=== PATIENT | female | born 1935 | race Caucasian/White ===

== ENCOUNTER → 2016-07-29 | Outpatient (CLI) | payer OTHER | LOC: FIMAGING 11:53 | DX: Z12.31 Encounter for screening mammogram for malignant neoplasm of breast (principal); Z80.3 Family history of malignant neoplasm of breast | CPT/HCPCS: G0202 ==

== ENCOUNTER → 2016-12-30 | Outpatient (CLI) | payer OTHER | LOC: FLAB 13:09 | PROVIDERS: ATTEND Physician Assistant Medical | DX: R10.2 Pelvic and perineal pain (principal); R35.0 Frequency of micturition; M54.9 Dorsalgia, unspecified ==

== ENCOUNTER 2017-02-08 21:10 | Inpatient (IN) | payer OTHER ==
[2017-02-08] MEDS ORDERED: NS 500 ML IV ONE ×2 (21:25→22:55)
--- NOTE | 2017-02-08 21:27 | EDPHY ---
H & P Stated Complaint: chest pain jaw pain and syncope Time Seen by Provider: 02/08/17 21:14 HPI/ROS: CHIEF COMPLAINT: Jaw pain, chest pain, lightheaded HISTORY OF PRESENT ILLNESS: 81-year-old female who states she was in her usual state of good health today. After having dinner while standing she had an abrupt onset of feeling very dizzy, like she might pass out, and felt like her heart was pounding. She then developed right-sided jaw pain as well as some very mild anterior chest discomfort. She had a near syncopal episode but was able to lower herself to the floor. Symptoms were persistent so the patient took 1 of her 's nitroglycerin tablets as well as aspirin. Onset occurred approximately 2 hours ago. Patient also reports that both of her hands turned very blue and they were cold. Jaw pain/pounding heart/blue hands lasted 15-20 minutes On arrival to the emergency department the patient reports she has no jaw pain or anterior chest pain although she does report some ongoing lightheadedness. Patient reports being otherwise well. No recent fevers or chills, no shortness of breath, cough, URI symptoms. She does complain of some nausea but had no vomiting or diarrhea. No diaphoresis. No urinary complaints. No prior cardiac history. No history of hypertension, hypercholesterolemia, diabetes, or family history for coronary artery disease. REVIEW OF SYSTEMS: Aside from elements discussed in the HPI, a comprehensive 10-point review of systems was reviewed and is negative. PAST MEDICAL HISTORY: Hypothyroidism, osteoporosis. SOCIAL HISTORY: Nonsmoker. No alcohol use today. VITAL SIGNS Reviewed by me. GENERAL: Well-developed, well-nourished, reports feeling slightly lightheaded. Denies pain currently. HEENT: Atraumatic. Eyes: No icterus, no injection. Mouth: moist mucous membranes. No erythema or lesions. Neck: supple with no adenopathy. No JVD. LUNGS: Clear to auscultation bilaterally, no wheezes, rhonchi or rales. CARDIAC: Occasional premature beat. Split S1. No murmur. No rubs or gallops. Peripheral pulses intact throughout. ABDOMEN: Soft, nontender, nondistended, bowel sounds normal. BACK: No CVA tenderness. EXTREMITIES: No trauma. No edema. Range of motion is normal throughout. Fingers are bilaterally slightly dusky in appearance. Capillary refill is somewhat slow but less than 2 seconds. NEURO: Alert and oriented, grossly nonfocal. SKIN: Warm and dry, no rash. PSYCHIATRIC: Normal mentation, no agitation. - Personal History Current Tetanus/Diphtheria Vaccine: Unsure Current Tetanus Diphtheria and Acellular Pertussis (TDAP): Unsure - Medical/Surgical History Hx Asthma: No Hx Chronic Respiratory Disease: No Hx Diabetes: No Hx Cardiac Disease: No Hx Renal Disease: No Hx Cirrhosis: No Hx Alcoholism: No Hx HIV/AIDS: No Hx Splenectomy or Spleen Trauma: No Other PMH: hypothyroid. osteoperosis - Social History Smoking Status: Never smoked Constitutional: Initial Vital Signs Temperature (C) 36.8 C 02/08/17 21:15 Heart Rate 86 02/08/17 21:15 Respiratory Rate 16 02/08/17 21:15 Blood Pressure 152/106 H 02/08/17 21:15 O2 Sat (%) 97 02/08/17 21:15 O2 Delivery Mode Room Air Allergies/Adverse Reactions: Sulfa (Sulfonamide Antibiotics) Allergy (Mild, Verified 01/24/10 10:13) Rash Home Medications: Medication Instructions Recorded LEVOXYL 01/24/10 Evista 02/08/17 Medical Decision Making - Diagnostics EKG Interpretation: 12-LEAD EKG: Please see the full report in [facility]. My interpretation: Sinus rhythm, no acute ischemic changes Imaging Results: Imaging Impressions Chest X-Ray 02/08/17 21:24 Impression: Normal chest. ED Course/Re-evaluation: 81-year-old female presenting with an abrupt onset of dizziness, pounding heart , jaw discomfort and anterior chest discomfort. Symptoms were quite pronounced 15-20 minutes and mostly resolved following nitroglycerin and aspirin tablet. Patient does report ongoing slight dizziness on arrival to the emergency department. EKG is nonischemic although the patient does have PACs. Chest x-ray has cardiomegaly a slightly boot-shaped heart, and tracheal deviation to the right. No murmur on exam. Troponin is negative. Patient's blood pressures in bilateral upper extremities are 133/84 on the left , 153/89 on the right. Patient's D-dimer is positive at 1.09. Patient will undergo CT scan of her chest to evaluate for dissection, pulmonary embolism. Patient's course was discussed with Dr. Carl Betancourt. CT scan is pending at the time of this dictation. Patient will be transferred to [facility] via ambulance. Patient and her family are aware. CT scan was negative for dissection as well as for pulmonary embolism. Patient received additional 500 cc of fluid after receiving her IV contrast. Differential Diagnosis: Differential diagnoses for the patient's symptom complex was considered including but not limited to coronary artery disease, arrhythmia, pulmonary embolism, dissection, indigestion, vasovagal event. Consult/Admit Bed Type: Carl Talbot, [facility] - Data Points Laboratory Results: Laboratory Results 02/08/17 21:25 02/08/17 21:25 02/08/17 02/08/17 02/08/17 21:25 21: 21:25 WBC 7.30 10^3/uL 10^3/uL (3.80-9.50) RBC 5.02 10^6/uL 10^6/uL (4.18-5.33) Hgb 15.6 g/dL g/dL (12.6-16.3) Hct 45.7 % % (38.0-47.0) MCV 91.0 fL fL (81.5-99.8) MCH 31.1 pg pg (27.9-34.1) MCHC 34.1 g/dL g/dL (32.4-36.7) RDW 14.6 % % (11.5-15.2) Plt Count 245 10^3/uL 10^3/uL (150-400) MPV 11.4 fL fL (8.7-11.7) Neut % (Auto) 48.1 % % (39.3-74.2) Lymph % (Auto) 39.3 % % (15.0-45.0) [place] % (Auto) 9.0 % % (4.5-13.0) Eos % (Auto) 3.0 % % (0.6-7.6) Baso % (Auto) 0.5 % % (0.3-1.7) Nucleat RBC Rel Count 0.0 % % (0.0-0.2) Absolute Neuts (auto) 3.50 10^3/uL 10^3/uL (1.70-6.50) Absolute Lymphs (auto) 2.87 10^3/uL 10^3/uL (1.00-3.00) Absolute Monos (auto) 0.66 10^3/uL 10^3/uL (0.30-0.80) Absolute Eos (auto) 0.22 10^3/uL 10^3/uL (0.03-0.40) Absolute Basos (auto) 0.04 10^3/uL 10^3/uL (0.02-0.10) Absolute Nucleated RBC 0.00 10^3/uL 10^3/uL (0-0.01) Immature Gran % 0.1 % % (0.0-1.1) Immature Gran # 0.01 10^3/uL 10^3/uL (0.00-0.10) D-Dimer 1.09 ug/mLFEU H ug/mLFEU (0.00-0.50) Sodium 141 mEq/L mEq/L (134-144) Potassium 4.1 mEq/L mEq/L (3.5-5.2) Chloride 106 mEq/L mEq/L (97-110) Carbon Dioxide 21 mEq/l L mEq/l (22-31) Anion Gap 14 mEq/L mEq/L (8-16) BUN 29 mg/dL H mg/dL (7-23) Creatinine 0.9 mg/dL mg/dL (0.6-1.0) Estimated GFR > 60 Glucose 104 mg/dL H mg/dL (70-100) Calcium 9.6 mg/dL mg/dL (8.5-10.4) Troponin I < 0.012 ng/mL ng/mL (0.000-0.034) Lipase 176 IU/L IU/L (23-300) Medications Given: Discontinued Medications Sodium Chloride (Ns) 500 mls @ 1,000 mls/hr IV EDNOW ONE PRN Reason: Protocol Stop: 02/08/17 21:54 Last Admin: 02/08/17 21:26 Dose: 500 mls Departure - Departure Disposition: [facility] Acute Clinical Impression: Jaw pain, rule out ACS, Lightheadedness Condition: Fair
--- NOTE | 2017-02-08 21:32 | CPEKG ---
Heart Rate: 85 RR Interval: 706 P-R Interval: 144 QRSD Interval: 72 QT Interval: 348 QTC Interval: 414 P [place]: 98 QRS [place]: 12 T Wave [place]: 40 EKG Severity - OTHERWISE NORMAL ECG - EKG Impression: SINUS RHYTHM EKG Impression: ATRIAL PREMATURE COMPLEX Electronically Signed By: Chasidy Posadas 08-Feb-2017 22:59:13
[2017-02-08 21:36] LABS: % IMMATURE GRANULYOCYTES 0.1 % (0.0-1.1); ABSOLUTE IMMATURE GRANULOCYTES 0.01 10^3/uL (0.00-0.10); ADD DIFF? NO; ADD MORPH? NO; ADD SCAN? NO; ATYPICAL LYMPHOCYTE FLAG 0 (0-99); FRAGMENT RBC FLAG 0 (0-99); HEMATOCRIT 45.7 % (38.0-47.0); HEMOGLOBIN 15.6 g/dL (12.6-16.3); LEFT SHIFT FLG 0 (0-99); LIPEMIA HEMOLYSIS FLAG 90 (0-99); MEAN CELL HEMOGLOBIN 31.1 pg (27.9-34.1); MEAN CELL HEMOGLOBIN CONCENTR. 34.1 g/dL (32.4-36.7); MEAN PLATELET VOLUME 11.4 fL (8.7-11.7); PLATELET CLUMPS FLAG 0 (0-99); PLATELET COUNT 245 10^3/uL (150-400); RED BLOOD CELL COUNT 5.02 10^6/uL (4.18-5.33); RED CELL DISTRIBUTION WIDTH 14.6 % (11.5-15.2)
[2017-02-08 21:50] LABS: ANION GAP 14 mEq/L (8-16); CALCIUM 9.6 mg/dL (8.5-10.4); CARBON DIOXIDE 21 mEq/l (22-31); CHLORIDE 106 mEq/L (97-110); CREATININE 0.9 mg/dL (0.6-1.0); GLOMERULAR FILTRATION RATE > 60; GLUCOSE 104 mg/dL (70-100); POTASSIUM 4.1 mEq/L (3.5-5.2); SODIUM 141 mEq/L (134-144)
[2017-02-08 22:04] LABS: TROPONIN I < 0.012 ng/mL (0.000-0.034)
[2017-02-08] MEDS ORDERED: IOPAMIDOL (ISOVUE 370) 100 ML BTL IV ONE (22:26)
[2017-02-08] MEDS ORDERED: ONDANSETRON DISINTEGRATING 4 MG TAB PO PRN (23:57)
[2017-02-08] MEDS ORDERED: ONDANSETRON 4 MG/2 ML VIAL IVP PRN (23:57)
--- NOTE | 2017-02-09 00:38 | PDGENHP ---
History and Physical - Chief Complaint Chest pain - History of Present Illness 81 yo F w/ hypothyroid presented to [facility] 2/2 episode of dizziness and jaw pain. She noted acute onset dizziness and chest discomfort this afternoon followed by right sided jaw pain. The discomfort lasted for about 30 minutes and improved with NTG and aspirin. She was symptom free at the time of my evaluation. She has no personal or family hx of cardiac disease. ROS negative for infectious symptoms. History Information - Allergies/Home Medication List Allergies/Adverse Reactions: Sulfa (Sulfonamide Antibiotics) Allergy (Mild, Verified 01/24/10 10:13) Rash Home Medications: LEVOXYL 01/24/10 [Last Taken Unknown] Evista 02/08/17 [Last Taken Unknown] I have personally reviewed and updated: family history, medical history - Past Medical History Additional medical history: Hypothyroid - Family History Additional family history: Denies family hx of cardiac disease - Social History Smoking Status: Never smoked Alcohol Use: None Drug Use: None Review of Systems Review of Systems: ROS: 10pt was reviewed & negative except for what was stated in HPI & below Physical Exam Physical Exam: Temp Pulse Resp BP Pulse Ox 36.9 C 74 18 139/89 H 96 02/08/17 23:13 02/08/17 23:13 02/08/17 23:13 02/08/17 23:13 02/08/17 23:13 O2 (L/minute) 2 Constitutional: no apparent distress, not in pain Eyes: PERRL, EOMI Ears, Nose, Mouth, Throat: moist mucous membranes, no oral mucosal ulcers Cardiovascular: regular rate and rhythym, no murmur, rub, or gallop Respiratory: no respiratory distress, no rales or rhonchi Gastrointestinal: normoactive bowel sounds, soft, non-tender abdomen Genitourinary: no bladder fullness, no bladder tenderness Skin: warm, normal color Musculoskeletal: full muscle strength, no muscle tenderness Neurologic: AAOx3, CN II-XII Intact Psychiatric: interacting appropriately, not anxious Lab Data & Imaging Review 02/08/17 21:25 02/08/17 21:25 WBC 7.30 10^3/uL (3.80-9.50) 02/08/17 21:25 RBC 5.02 10^6/uL (4.18-5.33) 02/08/17 21:25 Hgb 15.6 g/dL (12.6-16.3) 02/08/17 21:25 Hct 45.7 % (38.0-47.0) 02/08/17 21:25 MCV 91.0 fL (81.5-99.8) 02/08/17 21:25 MCH 31.1 pg (27.9-34.1) 02/08/17: MCHC 34.1 g/dL (32.4-36.7) 02/08/17:25 RDW 14.6 % (11.5-15.2) 02/08/17: Plt Count 245 10^3/uL (150-400) 02/08/17: MPV 11.4 fL (8.7-11.7) 02/08/17: Neut % (Auto) 48.1 % (39.3-74.2) 02/08/17: Lymph % (Auto) 39.3 % (15.0-45.0) 02/08/17: [place] % (Auto) 9.0 % (4.5-13.0) 02/08/17: Eos % (Auto) 3.0 % (0.6-7.6) 02/08/17: Baso % (Auto) 0.5 % (0.3-1.7) 02/08/17: Nucleat RBC Rel Count 0.0 % (0.0-0.2) 02/08/17: Absolute Neuts (auto) 3.50 10^3/uL (1.70-6.50) 02/08/17:25 Absolute Lymphs (auto) 2.87 10^3/uL (1.00-3.00) 02/08/17: Absolute Monos (auto) 0.66 10^3/uL (0.30-0.80) 02/08/17: Absolute Eos (auto) 0.22 10^3/uL (0.03-0.40) 02/08/17: Absolute Basos (auto) 0.04 10^3/uL (0.02-0.10) 02/08/17: Absolute Nucleated RBC 0.00 10^3/uL (0-0.01) 02/08/17 21:25 Immature Gran % 0.1 % (0.0-1.1) 02/08/17 21:25 Immature Gran # 0.01 10^3/uL (0.00-0.10) 02/08/17 21:25 D-Dimer 1.09 ug/mLFEU (0.00-0.50) H 02/08/17 21:25 Sodium 141 mEq/L (134-144) 02/08/17 21:25 Potassium 4.1 mEq/L (3.5-5.2) 02/08/17 21:25 Chloride 106 mEq/L (97-110) 02/08/17 21:25 Carbon Dioxide 21 mEq/l (22-31) L 02/08/17 21:25 Anion Gap 14 mEq/L (8-16) 02/08/17 21:25 BUN 29 mg/dL (7-23) H 02/08/17 21:25 Creatinine 0.9 mg/dL (0.6-1.0) 02/08/17 21:25 Estimated GFR > 60 02/08/17 21:25 Glucose 104 mg/dL (70-100) H 02/08/17 21:25 Calcium 9.6 mg/dL (8.5-10.4) 02/08/17 21:25 Troponin I < 0.012 ng/mL (0.000-0.034) 02/08/17 21:25 Lipase 176 IU/L (23-300) 02/08/17 21:25 Imaging Review: CTPE without evidence of pulmonary embolism. Visualized and Interpreted EKG results: Yes EKG Interpretation: Positive for: normal sinsus rhythm Assessment & Plan Assessment: 81 yo F w/ hypothyroid admitted after episode of dizziness, chest discomfort, and jaw pain. Plan: 1. Chest pain - Acute episode of dizziness, jaw pain, and chest discomfort. Episode lasted about 30 min and improved with NTG and aspirin. She has no prior hx or significant risk factors for CAD aside from age. However, episode does have some concerning features so will opt for inpatient risk stratification. Initial troponin and ECG without signs of ischemia. - Monitor on telemetry, trend cardiac enzymes - Will order nuclear stress test for risk stratification 2. Hypothyroid - On LTX as outpatient Diet - NPO Ppx - LMWH Code - Full Dispo - Admit to observation status
[2017-02-09] MEDS: MELATONIN 3 MG TAB PO PRN ×2 (00:41→21:10)
[2017-02-09 04:47] LABS: % IMMATURE GRANULYOCYTES 0.2 % (0.0-1.1); ABSOLUTE IMMATURE GRANULOCYTES 0.01 10^3/uL (0.00-0.10); ADD DIFF? NO; ADD MORPH? NO; ADD SCAN? NO; ATYPICAL LYMPHOCYTE FLAG 20 (0-99); FRAGMENT RBC FLAG 0 (0-99); HEMATOCRIT 39.3 % (38.0-47.0); HEMOGLOBIN 13.5 g/dL (12.6-16.3); LEFT SHIFT FLG 0 (0-99); LIPEMIA HEMOLYSIS FLAG 90 (0-99); MEAN CELL HEMOGLOBIN 31.5 pg (27.9-34.1); MEAN CELL HEMOGLOBIN CONCENTR. 34.4 g/dL (32.4-36.7); MEAN CELL VOLUME 91.6 fL (81.5-99.8); MEAN PLATELET VOLUME 11.5 fL (8.7-11.7); PLATELET CLUMPS FLAG 0 (0-99); PLATELET COUNT 202 10^3/uL (150-400); RED BLOOD CELL COUNT 4.29 10^6/uL (4.18-5.33); RED CELL DISTRIBUTION WIDTH 14.8 % (11.5-15.2)
[2017-02-09 05:49] LABS: ANION GAP 8 mEq/L (8-16); CARBON DIOXIDE 21 mEq/l (22-31); CHLORIDE 112 mEq/L (97-110); CREATININE 0.8 mg/dL (0.6-1.0); GLOMERULAR FILTRATION RATE > 60; GLUCOSE 79 mg/dL (70-100); POTASSIUM 4.5 mEq/L (3.5-5.2); SODIUM 141 mEq/L (134-144)
[2017-02-09 05:57] LABS: TROPONIN I 0.028 ng/mL (0.000-0.034)
[2017-02-09] MEDS: RALOXIFENE HCL 60 MG TAB PO SCH (09:39)
[2017-02-09] MEDS: ENOXAPARIN 40 MG/0.4 ML SYR SC SCH (09:39)
[2017-02-09] MEDS: ACETAMINOPHEN 325 MG TAB PO PRN (10:02)
[2017-02-09 10:20] LABS: CHOLESTEROL 140 mg/dL (140-220); CHOLESTEROL/HDL RATIO 2.75 RATIO (1.00-4.44); HIGH DENSITY LIPOPROTEIN 51 mg/dL (40-85); LDL/HDL RATIO 1.49 RATIO (1.00-3.22); LOW DENSITY LIPOPROTEIN 76 mg/dL (80-100); NON-HIGH DENSITY LIPOPROTEIN 89 mg/dL (90-129); TRIGLYCERIDE 65 mg/dL (35-135); VERY LOW DENSITY LIPOPROTEINS 13 mg/dL (8-25)
[2017-02-09 10:33] LABS: TROPONIN I < 0.012 ng/mL (0.000-0.034)
--- NOTE | 2017-02-09 10:50 | HOSPPROG ---
Hospitalist Progress Note Assessment/Plan: First encounter with this patient 81 yo F w/ hypothyroid admitted after episode of dizziness, chest discomfort, and jaw pain. CTA negative Non smoker Trops negative x 3 no events on telemetry No further chest pain, neck or jaw pain Awaiting Nuclear stress test this morning Lipid panel unremarkable If stress test is negative, discharge to home. DDx: 1. Chest pain - 2. Hypothyroid - On LTX as outpatient. TSH is pending Ppx - LMWH Code - Full Dispo - Admit to observation status Subjective: No further chest pain or jaw pain. No N/V. NO SOB. No leg edema. NOn smoker. Objective: Vital Signs Temp Pulse Resp BP Pulse Ox 36.7 C 64 19 99/51 L 98 02/09/17 07:15 02/09/17 07:15 02/09/17 07:15 02/09/17 07:15 02/09/17 09:45 Laboratory Results 02/09/17 04:04 02/09/17 04:04 02/08/17 02/09/17 02/10/17 05:59 05:59 05:59 Intake Total 1100 500 Output Total 700 Balance 1100 -200 - Physical Exam Constitutional: no apparent distress, appears nourished Eyes: PERRL, EOMI Ears, Nose, Mouth, Throat: moist mucous membranes, hearing normal Cardiovascular: regular rate and rhythym, no murmur, rub, or gallop Respiratory: no respiratory distress, no rales or rhonchi Gastrointestinal: normoactive bowel sounds Skin: warm Neurologic: AAOx3 Psychiatric: interacting appropriately, not anxious, not encephalopathic ICD10 Worksheet Patient Problems: Problems Problem Status Onset Jaw pain Acute Lightheadedness Acute
--- NOTE | 2017-02-09 10:59 | ASMTCMCOM ---
CM Note CM Note Notes: 02/09/2017 Case Management Note Met w/pt. Pt lives with . Pt is primary caregiver for who has significant health issues including dementia, a borken neck and severe heart issues. Daughter Rebeca [phone] is taking care of pt's during her hospital admission. Daughter Lucia [phone] is also involved in Dad's cares. Pt still drives and has no difficulty preparing meals. has used [facility] after recent SNF rehab stay. If Home care is necessary for pt, she would prefer [facility]. No Case Management d/c needs were identified. Anticipate d/c will be home independent when medically stable. Case Management available if needs change. Date Signed: 02/09/2017 10:59 AM Electronically Signed By:Ligia Hobbs RN
[2017-02-09] MEDS ORDERED: REGADENOSON 0.4 MG/5 ML SYR IVP ONE (11:39)
--- NOTE | 2017-02-09 12:22 | CPIP ---
[f rep st] INVASIVE CARDIAC PROCEDURE DATE OF PROCEDURE: 02/08/2017 PROCEDURE PERFORMED: Lexiscan stress test. INDICATION: Chest pain. COMPLICATIONS: None. DESCRIPTION OF PROCEDURE: An informed consent was obtained. The patient had been caffeine free for at least 24 hours. She was established to the monitor. Continuous telemetry monitoring and oximetry was performed along with blood pressures every minute during testing. The patient received standard 0.4 mg Lexiscan dose followed by saline flush, followed by radiopharmaceutical. She tolerated the p rocedure well with mild chest fullness and dizziness that resolved with caffeine ingestion. FINDINGS: Resting EKG: Sinus rhythm. Stress EKG: PAC. No ischemic ST changes. HEMODYNAMICS: Resting heart rate 61. Resting blood pressure 118/74. Peak stress blood pressure 104 /62 with a heart rate of 95. Oxygen saturation remained above 90% throughout the testing. CONCLUSIONS: Uneventful Lexiscan infusion. Await nuclear images. Patient currently in stable condi tion. Copy requested to: Primary Geology Instructor /[id number]/MODL
--- NOTE | 2017-02-09 16:14 | PDMN ---
Medical Necessity Medical necessity: C/M review: est.> 2 MN LOS for eval and TX of acute chest pain, 02.09.2017 abnormal myocardial perfusion scan requiring planned 2016 myocardial perfusion scan rest images, ongoing cardiac monitoring, comorbid hypothyroidism per 02/09/2017 Hospitalist progress note.
[2017-02-09] MEDS ORDERED: NS 250 ML IV ONE (18:30)
[2017-02-09] MEDS: METHENAMINE HIPP 1 GM TAB PO SCH (21:09)
[2017-02-10] MEDS ORDERED: LEVOTHYROXINE 50 MCG TAB PO SCH (06:00)
[2017-02-10] MEDS ORDERED: RALOXIFENE HCL 60 MG TAB PO SCH (09:00)
[2017-02-10] MEDS ORDERED: CALCIUM CARB W/VIT D 500 MG TAB PO SCH (09:00)
[2017-02-10] MEDS ORDERED: CHOLECALCIFEROL VIT D3 1,000 UNITS TAB PO SCH (09:00)
[2017-02-10] MEDS: ACETAMINOPHEN 325 MG TAB PO PRN (11:41)
[2017-02-10] MEDS ORDERED: NITROGLYCERIN 0.4 MG BTL SL PRN (12:14)
[2017-02-10] MEDS ORDERED: ASPIRIN EC 325 MG TAB PO ONE (12:14)
[2017-02-10] MEDS ORDERED: DIAZEPAM 5 MG TAB PO ONE (12:14)
[2017-02-10] MEDS ORDERED: diphenhydrAMINE 25 MG CAP PO ONE (12:14)
[2017-02-10] MEDS ORDERED: TEMAZEPAM 15 MG CAP PO PRN (12:14)
[2017-02-10] MEDS ORDERED: FAMOTIDINE 20 MG TAB PO ONE (12:14)
--- NOTE | 2017-02-10 12:16 | PDHPUP ---
History & Physical Update H&P update statement: This history and physical update is based on an assessment of the patient which was completed after admission or registration (within 24 hours), but prior to the surgery/procedure. H&P update: no change in patient's condition since H&P completed
--- NOTE | 2017-02-10 12:17 | PDPROPOC ---
Sedation Plan of Care Sedation Plan of Care: mental status noted ASA Classification: ASA 2 Planned drugs: fentanyl, midazolam Mallampati Score: Class 2 Mallampati Reference Image: Patient passed 3-3-2 rule?: Yes
[2017-02-10] MEDS ORDERED: MIDAZOLAM 2 MG/2 ML VIAL ONE (12:29)
[2017-02-10] MEDS ORDERED: LIDOCAINE 1% 300 MG/30 ML SDV ONE (12:29)
[2017-02-10] MEDS ORDERED: fentaNYL 100 MCG/2 ML INJ ONE (12:29)
[2017-02-10] MEDS ORDERED: IOPAMIDOL (ISOVUE-370) 150 ML BTL IV ONE (12:30)
[2017-02-10] MEDS: ENOXAPARIN 40 MG/0.4 ML SYR SC SCH (12:49)
[2017-02-10] MEDS: RALOXIFENE HCL 60 MG TAB PO SCH (12:49)
[2017-02-10] MEDS: METHENAMINE HIPP 1 GM TAB PO SCH (12:49)
[2017-02-10] MEDS ORDERED: ATROPINE SULFATE 1 MG/10 ML SYR IVP PRN (13:33)
--- NOTE | 2017-02-10 14:06 | CPIP ---
[f rep st] INVASIVE CARDIAC PROCEDURE DATE OF PROCEDURE: 02/10/2017 INDICATION FOR PROCEDURE: Chest pain. PROCEDURE: 1. Nonselective right coronary sheathogram. 2. Bilateral coronary angiography. 3. Left heart catheterization. 4. Left ventriculogram. 5. Right groin closure with 6-Micronesian Angio-Seal. HISTORY: Briefly, this is a 81-year-old female with history of jaw pain, relieved with nitroglycerin ; who had a positive stress test with anterior ischemia. Given these findings, the patient was conse nted for left heart catheterization. DESCRIPTION OF PROCEDURE: After informed consent, the patient was brought to [facility], where the right gr oin was prepped and draped in sterile fashion, injected with lidocaine. A short 6-Micronesian sheath was introduced in right common femoral artery, verified angiographically. Through the 6-Micronesian sheath, a JL4 catheter was advanced to the left coronary artery. Images of left coronary artery revealed a sh ort left main. Left circumflex artery gave off marginal 1 proximally, which was healthy and free of disease; and at termination was a marginal 2 artery, which was healthy and free of disease. The LAD was a healthy vessel which only had mild plaque disease throughout its course. There was a medium to large diagonal artery coming off proximally, which was healthy and free of disease. After images ob tained, the JL4 catheter was removed. The JR4 catheter was advanced to right coronary artery. Image s of right coronary artery revealed a normal ostium of RCA. The mid RCA had 20% tubular plaque disea se. Distally, the RPDA and RPLS appeared to be widely patent. The JR4 catheter was removed. A pigt ail catheter was advanced into the left ventricle. LVEDP was 50 mmHg. Left ventriculogram in the RA O position showed EF of 65% with no wall motion abnormalities. There was no pull-back gradient betwe en the LV and the aorta. The right groin was closed with a 6-Micronesian Angio-Seal. Patient tolerated t he procedure well, no complications. IMPRESSION: 1. Essentially normal coronary arteries with only mild plaque disease bilaterally. 2. Normal ejection fraction. PLAN: The patient's pain is coming from a non-coronary etiology. Suspect potential vasovagal episod e with subsequent chest pain secondary to low blood pressure. The patient is cleared from a cardiova scular perspective to be discharged later this afternoon. /[id number]/MODL
[2017-02-10 15:10] VITALS: BP 147/81; PULSE 72; RESP 16; TEMP 97.5; O2SAT 96
--- NOTE | 2017-02-10 17:26 | PDDCSUM ---
Discharge Summary Discharge Summary: DISCHARGE SUMMARY FOLLOW-UP ITEMS: Outpatient 30 day event monitor DATE OF ADMISSION: 02/08/2017 DATE OF DISCHARGE: 02/10/2007 DISCHARGE DIAGNOSES: 1. Acute jaw pain 2. Acute syncope 3. Mild coronary artery disease CONSULTATIONS: Cardiology PROCEDURES / IMAGING: Catheterization on 02/10/2017 CHIEF COMPLAINT: Acute jaw pain and syncope SUBJECTIVE: Patient is feeling well at time discharge, she has no jaw pain PHYSICAL EXAM ON DISCHARGE: Systolic blood pressure is 110, heart rate 60, afebrile overnight, satting well on room air, alert awake oriented x3, no apparent distress, no TMJ tenderness or pain elicited with opening or closing the mouth, full range of motion of the neck without any pain, cranial nerves 2-12 are intact and tested comma motor strength 5/5 bilateral upper and lower extremities LABS ON DISCHARGE: LDL 76 HOSPITAL COURSE BY PROBLEM: Patient presented with acute jaw pain following a syncopal episode, of unclear etiology. The patient was ruled out for pulmonary embolism with a negative CT angiogram and she was ruled out for obstructive coronary disease with essentially normal cardiac catheterization, demonstrating only minimal plaque and normal ejection fraction. Patient demonstrated no recurrence of her symptoms, and her syncope should be further evaluated with a 30 day event monitor. I recommend that she follow up with [facility] to have this placed and to reassess whether she has any recurrence of symptoms. She had an essentially normal neurologic exam and did not warrant further neurovascular imaging. I did recommend that she begin aspirin 81 mg given her mild coronary artery disease on catheterization. DISCHARGE MEDICATIONS: Please see official discharge medication reconciliation sheet in chart , aspirin 81 mg daily. DISCHARGE INSTRUCTIONS: Please follow up with [facility] for 30 day event monitor. TIME SPENT: Greater than 30 minutes were spent on direct patient care, as well as discharge planning and preparation.
--- NOTE | 2017-02-10 22:33 | GCON ---
[f rep st] CONSULTATION CARDIOLOGY CONSULTATION DATE OF CONSULTATION: 02/10/2017 INDICATION FOR CONSULT: Chest pain. HISTORY OF PRESENT ILLNESS: This is a 81-year-old female, who is admitted to [facility] with complaints of lightheadedness, jaw pain, which happened yesterday morning. The patient indica álvaro that this was a sudden onset of acute onset of dizziness and chest discomfort. She indicated the pain in her jaw did not relieve itself and she took her 's nitroglycerin, which then relieved the pain. Came to emergency room where she was found to have ECG which showed normal sinus rhythm w ith APCs. Blood pressure was stable if not on the lower end. She denied any symptoms while in-house . She did undergo a Lexiscan nuclear stress test which showed small area of anterior ischemia with a normal ejection fraction. Currently the patient is resting quietly. Denies any shortness of breath or chest pain. Blood pressure, heart rate is currently stable. The patient denies any past medical history of cardiac disease. PAST MEDICAL HISTORY: Hypothyroidism. HOME MEDICATIONS: Consist of Levoxyl Evista. SOCIAL HISTORY: Patient denies any smoking or drinking. FAMILY HISTORY: Noncontributory. REVIEW OF SYSTEMS: Patient denies any change in vision. No headache. No palpitations. No jaw pain . No abdominal pain. No chest pain. No lower extremity pain. PHYSICAL EXAM: VITAL SIGNS: Patient afebrile at 96, blood pressure 110/70, the heart rate 72, respi rations 12, satting 95% room air. HEENT: Pupils equal, round to light and accommodation. Extraocul ar muscles intact. CARDIOVASCULAR: Regular rate and rhythm. S1-S2. LUNGS: Clear to auscultation bilaterally. ABDOMEN: Soft and nontender. No guarding. EXTREMITIES: No clubbing, no cyanosis. No edema. NEUROLOGIC: The patient is alert and oriented x3. LABORATORY VALUES: Currently show a white count of 6.1, hemoglobin 13.5, hematocrit 39.3, platelet c ount 202. Creatinine 0.8, potassium 4.5, D-dimer 1.09. ASSESSMENT/PLAN: Jaw pain. At this time, the patient's symptoms have resolved. However, the patien t did have a positive nuclear stress test with anterior wall ischemia. She did have a CTA upon admis artie as well which was negative for acute aortic or pulmonic thrombolic disease. Given the fact that the patient's jaw pain was relieved with nitroglycerin as well as the fact that she does have positi ve anterior wall ischemia, I feel that we should move forward with a left heart catheterization to de fine her coronary anatomy. I have explained the risks/possible complications of the procedure includ ing stroke, bleeding, and possible and she would like to proceed. We will have the patient sta y n.p.o. and proceed with this procedure in the next few hours. /[id number]/MODL
--- NOTE | 2017-02-11 07:40 | CPEKG ---
Heart Rate: 66 RR Interval: 909 P-R Interval: 148 QRSD Interval: 78 QT Interval: 404 QTC Interval: 424 P [place]: 94 QRS [place]: 19 T Wave [place]: 51 EKG Severity - NORMAL ECG - EKG Impression: SINUS RHYTHM Electronically Signed By: Jose Araiza 11-Feb-2017 16:54:23
--- NOTE | 2017-02-12 15:51 | ASDISCHSUM ---
Discharge Information Plan Status:Home with Home Health Medically Cleared to Leave: Discharge Date:02/10/2017 05:54 PM CM D/C Disposition:Home, Routine, Self-Care ADT D/C Disposition:Home, Routine, Self-Care Projected Discharge Date:02/10/2017 05:54 PM Transportation at D/C:Family Discharge Delay Reason: Follow-Up Date:02/10/2017 05:54 PM Discharge Slot: Final Diagnosis: Placement Information Patient Contact Information Contact Name:TINY Relationship: Address:[address] Work Phone: City:[place] Phone: State/Zip Code:[place] [address] Email: Financial Information Financial Class: Primary Plan Desc:MEDICARE INPATIENT Primary Plan Number:[id number] Secondary Plan Desc:[facility] Secondary Plan Number:[id number] Assessment Information [facility] CM Progress Note CM Note CM Note Notes: 02/09/2017 Case Management Note Met w/pt. Pt lives with . Pt is primary caregiver for who has significant health issues including dementia, a borken neck and severe heart issues. Daughter Rebeca [phone] is taking care of pt's during her hospital admission. Daughter Lucia [phone] is also involved in Dad's cares. Pt still drives and has no difficulty preparing meals. has used [facility] after recent [facility] rehab stay. If Home care is necessary for pt, she would prefer [facility]. No Case Management d/c needs were identified. Anticipate d/c will be home independent when medically stable. Case Management available if needs change. Date Signed: 02/09/2017 10:59 AM Electronically Signed By:Ligia Hobbs RN Intervention Information Intervention Type:*Occurence 74 Date of Service:02/08/2017 09:12 AM Patient Type:Inpatient Staff Member:ZACK Calvillo [facility] Hours: Discipline: Severity: Comment:
== END 2017-02-10 17:54 | disposition home or self-care (01) | DRG 287 ==
LOC: CED 21:10 → CEDHOLD 22:38 → F2W 02-09 00:19 → OBSVTOIN 02-09 15:56
PROVIDERS: ADMIT Student in an Organized Health Care Education/Training Program; ATTEND Family Medicine
PROC: 4A023N7 Measurement of Cardiac Sampling and Pressure, Left Heart, Percutaneous Approach (ICD-10-PCS; principal; 2017-02-10)
PROC: B2111ZZ Fluoroscopy of Multiple Coronary Arteries using Low Osmolar Contrast (ICD-10-PCS; principal; 2017-02-10)
PROC: B2151ZZ Fluoroscopy of Left Heart using Low Osmolar Contrast (ICD-10-PCS; principal; 2017-02-10)
DX: R55 Syncope and collapse (principal); R68.84 Jaw pain; E03.9 Hypothyroidism, unspecified; M81.0 Age-related osteoporosis without current pathological fracture; I25.10 Atherosclerotic heart disease of native coronary artery without angina pectoris
CPT/HCPCS: 71020-PO; 71275-PO; 80048-PO; 83690-PO; 83735-PO; 84484-PO; 85025-PO; 85378-PO; A9500; C1760; G0378; J1644; J1650; J2250; J2785; J3010; Q9967

== ENCOUNTER → 2017-03-03 | Outpatient (CLI) | payer OTHER | LOC: BHFA 11:30 | PROVIDERS: ATTEND Internal Medicine Cardiovascular Disease | DX: R55 Syncope and collapse (principal) ==

== ENCOUNTER → 2017-07-30 | Outpatient (CLI) | payer OTHER | LOC: FIMAGING 10:42 | PROVIDERS: ATTEND Family Medicine | DX: Z12.31 Encounter for screening mammogram for malignant neoplasm of breast (principal); Z80.3 Family history of malignant neoplasm of breast ==

== ENCOUNTER → 2018-08-03 | Outpatient (CLI) | payer OTHER | LOC: FIMAGING 09:07 | PROVIDERS: ATTEND Obstetrics & Gynecology | DX: Z12.31 Encounter for screening mammogram for malignant neoplasm of breast (principal); Z80.3 Family history of malignant neoplasm of breast ==